=== PATIENT | male | born 1960 | race Caucasian/White ===

== ENCOUNTER → 2017-07-20 | Outpatient (CLI) | payer BC ==
[2017-07-20] VITALS (13 sets, daily range): BP systolic 117–150; BP diastolic 73–92
[~2017-07-20] MED LIST: ACCUNEB SO1.25 MG/1; COLCHICINE 0.60.6 M2 PO; HYDROCHLOROTHIA25 M2 PO; LEVOTHYROXIN0.125 M1 PO; LISINOPRIL10 MG PO; LISINOPRIL2.5 MG; NATESTO7.32 GM; NORVASC5 MG PO; PROTONIX40 M2 PO; VENTOLIN HFA 1818 GM INH; ZOCOR 20 MG TAB20 M1 PO
--- NOTE | 2017-07-20 15:05 | TEE ---
[place] [address] TRANSESOPHAGEAL ECHOCARDIOGRAM Name: JULIAN DILLARD BEV Room: [facility]#: [id number] Admission: 07/20/17 Attend Phys: Scar Joy MD Discharge: Date of : 64 Date of Service: 07/20/17 1505 Report #: [id number] THIS REPORT FOR: //name// APPROVED REPORT Study performed: 07/20/2017 08:53:41 EXAM: Transesophageal Echocardiogram Patient Location: Out-Patient Status: routine BSA: 5.30 HR: 59 bpm BP: 143/90 mmHg Rhythm: NSR Other Information Study Quality: Good Indications Aortic insufficiency Echo Enhancing Agent Indication: Rule out Shunt Agent(s) / Amount(s) Used: Agitated Saline 20 cc Procedure After obtaining informed consent, patient underwent transesophageal echo in the [employer]. Type of Sedation : Conscious Sedation Sedation was administered by Breanne Marrufo RN. Sedation start time: 911 Case end Time: 933 Sedation was achieved intravenously with: Versed (3) Fentanyl (25) Transesophageal probe was inserted and advanced into esophagus without difficulty by Scar Joy MD, [facility]. Echo enhancement indication: R/O Septal defect. Echo enhancement agent administered: Agitated Saline The SHANTA was performed without complications. Throughout the procedure, the blood pressure, pulse oximetry, cardiac rhythm, and rate were monitored. The patient tolerated the procedure without adverse effects. Recovery from conscious sedation was uneventful and vital signs were stable. Left Ventricle [address] [address] TRANSESOPHAGEAL ECHOCARDIOGRAM Name: JULIAN DILLARD BEV Room: [facility]#: [id number] Admission: 07/20/17 Attend Phys: Scar Joy MD Discharge: Date of : 64 Date of Service: 07/20/17 1505 Report #: [id number] The left ventricle is normal size. There is global hypokinesis of the left ventricle. There is normal left ventricular wall thickness. Left ventricular systolic function is mildly decreased. LVEF is 45-50%. Right Ventricle The right ventricle is normal size. The right ventricular systolic function is normal. Atria The left atrium size is normal. No thrombus is visualized in the left atrium or appendage. Small PFO is noted. The atrial septum is aneurysmal. The right atrium size is normal. Aortic Valve The aortic valve is normal in structure. Moderate aortic regurgitation. There is no aortic valvular stenosis. Mitral Valve The mitral valve is normal in structure. Mild mitral regurgitation. No evidence of mitral valve stenosis. Tricuspid Valve The tricuspid valve is normal in structure. There is no tricuspid valve regurgitation noted. Pulmonic Valve The pulmonary valve is normal in structure. There is no pulmonic valvular regurgitation. Great Vessels The aortic root is normal in size. Pericardium There is no pericardial effusion. <Conclusion> LVEF is 45-50%. Moderate aortic regurgitation. Mild mitral regurgitation. Small PFO is noted. The atrial septum is aneurysmal. <ELECTRONICALLY SIGNED> By: Scar Joy MD, [facility] 07/20/17 1505 1505 1505 Scar Joy MD, FACC /INF
== END | disposition home or self-care (01) ==
LOC: M.CL 07:49
DX: I08.0 Rheumatic disorders of both mitral and aortic valves (principal); I10 Essential (primary) hypertension; E78.5 Hyperlipidemia, unspecified; I42.9 Cardiomyopathy, unspecified; Z88.2 Allergy status to sulfonamides; Z79.899 Other long term (current) drug therapy; Z98.890 Other specified postprocedural states